=== PATIENT | male | born 1955 | race Caucasian/White ===

== ENCOUNTER 2016-08-20 13:52 | Emergency (ER) | payer MEDICAID ==
[~2016-08-20] VITALS: Ht 172.7 cm; Wt 81.4 kg
[~2016-08-20 13:52] MED LIST: ALBUTEROL0.09 MG/A1 IH; ASPIRIN 32325 MG/TAB PO; NO HOME MEDICATIONS; PERCOCET 325 MG1 TAB PO; PLAVIX 300MG T300 MG PO; PLAVIX 75MG TAB75 MG PO; PREDNISONE20 MG PO; ZITHROMAX 250M250 MG PO
[2016-08-20 13:54] VITALS: TEMP 98.4
[2016-08-20 14:15] VITALS: BP 131/75; PULSE 100
[2016-08-20 14:43] LABS: BASO # 0.1 (0.0-0.2); BASO % 0.8 % (0.0-2.0); EOS # 0.1 (0.0-0.7); GRAN % 59.1 % (42.2-75.2); LYMPH # 2.5 (1.2-3.4); LYMPH % 29.2 % (20.0-51.0); MEAN CELL VOLUME 90 fl (80.0-100.0); MEAN CORPUSCULAR HGB CONC 36 g/dl (33.0-37.0); MEAN PLATELET VOLUME 9.5 fl (7.4-10.4); MONO # 0.8 (0.1-0.6); MONO % 9.4 % (1.7-9.3); PLATELET COUNT 203 K/mm3 (130-400); RED BLOOD COUNT 6.22 M/mm3 (4.20-5.60); REDCELL DISTRIBUTION WIDTH-CV 13.7 % (11.5-14.5); WHITE BLOOD COUNT 8.4 K/mm3 (4.8-10.8)
[2016-08-20 14:46] LABS: HEMATOCRIT 56.1 % (42.0-52.0); HEMOGLOBIN 19.9 g/dl (13.5-18.0); MEAN CORPUSCULAR HEMOGLOBIN 32 pg (27.0-31.0)
[2016-08-20 15:13] LABS: INR 1.1 (0.8-3.0); PROTHROMBIN TIME 11.7 SECONDS (9.7-12.8)
[2016-08-20 15:15] LABS: PARTIAL THROMBOPLASTIN TIME 40.4 SECONDS (26.0-37.0)
== END 2016-08-20 14:15 | disposition short-term general hospital (02) ==
LOC: COL.ER 13:52
PROVIDERS: Family Medicine
DX: I21.29 ST elevation (STEMI) myocardial infarction involving other sites (principal); I73.9 Peripheral vascular disease, unspecified; Z95.820 Peripheral vascular angioplasty status with implants and grafts
CPT/HCPCS: J1644; J3101; J7030

== ENCOUNTER 2016-09-06 00:54 | Emergency (ER) | payer MEDICAID ==
[~2016-09-06] VITALS: Ht 172.7 cm; Wt 80.5 kg
[2016-09-06 00:58] VITALS: TEMP 98
[2016-09-06 01:30] LABS: BASO # 0.1 (0.0-0.2); BASO % 0.6 % (0.0-2.0); EOS # 0.1 (0.0-0.7); GRAN # 8.3 (1.4-6.5); GRAN % 65.4 % (42.2-75.2); LYMPH % 23.5 % (20.0-51.0); MEAN CELL VOLUME 92 fl (80.0-100.0); MEAN CORPUSCULAR HGB CONC 35 g/dl (33.0-37.0); MEAN PLATELET VOLUME 8.7 fl (7.4-10.4); MONO # 1.2 (0.1-0.6); MONO % 9.1 % (1.7-9.3); PLATELET COUNT 283 K/mm3 (130-400); RED BLOOD COUNT 5.74 M/mm3 (4.20-5.60); REDCELL DISTRIBUTION WIDTH-CV 13.2 % (11.5-14.5); WHITE BLOOD COUNT 12.7 K/mm3 (4.8-10.8)
[2016-09-06 01:32] LABS: HEMATOCRIT 52.6 % (42.0-52.0); HEMOGLOBIN 18.2 g/dl (13.5-18.0); MEAN CORPUSCULAR HEMOGLOBIN 32 pg (27.0-31.0)
[2016-09-06 01:40] LABS: ADJUSTED CALCIUM 9.6 mg/dL (8.4-10.2); ALBUMIN 3.8 gm/dL (3.5-5.0); BILIRUBIN,TOTAL 0.7 mg/dL (0.0-1.0); CALCIUM 9.4 mg/dL (8.4-10.2); CREATININE, serum 0.56 mg/dL (0.66-1.25); TOTAL PROTEIN 7.7 gm/dL (6.4-8.2)
[2016-09-06 01:53] LABS: TROPONIN-I 0.168 ng/mL (0.000-0.034)
[2016-09-06] MEDS ORDERED: PLAVIX 75MG TAB75 MG PO (03:43)
[2016-09-06] MEDS ORDERED: COREG12.5 MG PO (03:43)
[2016-09-06] MEDS ORDERED: LIPITOR 40MG TA40 MG PO (03:44)
[2016-09-06] MEDS ORDERED: NITROSTAT0.4 MG/TAB SL (03:44)
[2016-09-06] MEDS ORDERED: NOVOLOG MIX 70/33 ML SQ (03:44)
[2016-09-06 04:10] VITALS: BP 138/77; PULSE 94
== END 2016-09-06 04:10 | disposition short-term general hospital (02) ==
LOC: COL.ER 00:54
PROVIDERS: Emergency Medicine
DX: R07.9 Chest pain, unspecified (principal); R79.89 Other specified abnormal findings of blood chemistry; I10 Essential (primary) hypertension; E11.9 Type 2 diabetes mellitus without complications; I25.2 Old myocardial infarction; F17.210 Nicotine dependence, cigarettes, uncomplicated; I73.9 Peripheral vascular disease, unspecified; Z95.5 Presence of coronary angioplasty implant and graft
CPT/HCPCS: J1650

== ENCOUNTER → 2016-09-10 | Outpatient (CLI) | payer OTHER ==
[~2016-09-10] MED LIST changes: +ASPIRIN E.C. 8181 MG PO; +COREG12.5 MG PO; +HUMALOG MIX 75/10 ML SQ; +LIPITOR 40MG TA40 MG PO; +NITROSTAT0.4 MG/TAB SL; +NOVOLOG MIX 70/33 ML SQ
== END ==
LOC: COL.RAD 09:27
DX: M46.86 Other specified inflammatory spondylopathies, lumbar region (principal); I70.0 Atherosclerosis of aorta

== ENCOUNTER → 2016-11-07 | Outpatient (REF) | LOC: ZLAB.WCH 18:36 | DX: Z01.89 Encounter for other specified special examinations (principal) ==

== ENCOUNTER 2016-11-14 07:18 | Day surgery (SDC) | payer MEDICAID ==
[~2016-11-14] VITALS: Ht 172.7 cm; Wt 88.2 kg
[~2016-11-14 07:18] MED LIST changes: -ASPIRIN E.C. 8181 MG PO; -HUMALOG MIX 75/10 ML SQ
[2016-11-14 08:33] VITALS: BP 94/67; PULSE 83; TEMP 98.6
[2016-11-14] MEDS ORDERED: HUMALOG MIX 75/10 ML SQ (08:44)
[2016-11-14] MEDS ORDERED: ASPIRIN E.C. 8181 MG PO (08:45)
[2016-11-14 10:15] VITALS: BP 70/50; PULSE 87; TEMP 98.4
[2016-11-14 10:18] VITALS: BP 79/55; PULSE 86
[2016-11-14 10:20] VITALS: BP 88/51; PULSE 83
[2016-11-14 10:35] VITALS: BP 94/60; PULSE 85
[2016-11-14 10:55] VITALS: BP 105/64; PULSE 82
== END 2016-11-14 11:40 | disposition home or self-care (01) ==
LOC: SDCO 07:18
DX: H54.7 Unspecified visual loss (principal); I25.119 Atherosclerotic heart disease of native coronary artery with unspecified angina pectoris; K21.9 Gastro-esophageal reflux disease without esophagitis; E11.9 Type 2 diabetes mellitus without complications; I25.2 Old myocardial infarction; I73.9 Peripheral vascular disease, unspecified; J44.9 Chronic obstructive pulmonary disease, unspecified; M19.90 Unspecified osteoarthritis, unspecified site; Z95.5 Presence of coronary angioplasty implant and graft; Z79.01 Long term (current) use of anticoagulants
CPT/HCPCS: J0690; J1885; J2250; J2405; J2704; J3010; J7030

== ENCOUNTER 2017-02-16 20:55 | Emergency (ER) | payer MEDICAID ==
[~2017-02-16] VITALS: Ht 172.7 cm; Wt 89.5 kg
[~2017-02-16 20:55] MED LIST changes: +ASPIRIN E.C. 8181 MG PO; +HUMALOG MIX 75/10 ML SQ
[2017-02-16 20:58] VITALS: TEMP 98.1
[2017-02-16 21:34] LABS: BASO # 0.1 (0.0-0.2); BASO % 0.9 % (0.0-2.0); EOS # 0.2 (0.0-0.7); GRAN # 6.2 (1.4-6.5); GRAN % 56.2 % (42.2-75.2); HEMATOCRIT 46.2 % (42.0-52.0); HEMOGLOBIN 15.7 g/dl (13.5-18.0); LYMPH # 3.3 (1.2-3.4); LYMPH % 30.5 % (20.0-51.0); MEAN CELL VOLUME 95 fl (80.0-100.0); MEAN CORPUSCULAR HEMOGLOBIN 32 pg (27.0-31.0); MEAN CORPUSCULAR HGB CONC 34 g/dl (33.0-37.0); MONO # 1.1 (0.1-0.6); MONO % 10.1 % (1.7-9.3); PLATELET COUNT 235 K/mm3 (130-400); RED BLOOD COUNT 4.87 M/mm3 (4.20-5.60); REDCELL DISTRIBUTION WIDTH-CV 12.6 % (11.5-14.5)
[2017-02-16 21:57] LABS: ALANINE AMINOTRANSFERASE 42 U/L (21-72); ALBUMIN 3.5 gm/dL (3.5-5.0); ALKALINE PHOSPHATASE 96 U/L (50-136); ANION GAP 10 mmol/L (7-16); BILIRUBIN,TOTAL 0.5 mg/dL (0.0-1.0); BLOOD UREA NITROGEN 21 mg/dL (9-20); CALCIUM 8.6 mg/dL (8.4-10.2); CARBON DIOXIDE 25 mmol/L (22-30); CHLORIDE 101 mmol/L (98-107); CREATINE KINASE 57 U/L (55-170); CREATININE, serum 0.69 mg/dL (0.66-1.25); GLUCOSE 149 mg/dL (74-106); LIPASE 341 U/L (23-300); SODIUM 137 mmol/L (137-145); TOTAL PROTEIN 7.2 gm/dL (6.4-8.2)
[2017-02-16 21:58] LABS: INR 1.1 (0.8-3.0); PROTHROMBIN TIME 12.5 SECONDS (9.7-12.8)
[2017-02-16 22:00] LABS: PARTIAL THROMBOPLASTIN TIME 34.4 SECONDS (26.0-37.0)
[2017-02-16 22:07] LABS: B-TYPE NATRIURETIC PEPTIDE 335 pg/mL (0-125); TROPONIN-I < 0.012 ng/mL (0.000-0.034)
[2017-02-16 22:49] VITALS: BP 116/70; PULSE 84
== END 2017-02-16 22:52 | disposition left against medical advice (07) ==
LOC: COL.ER 20:55
PROVIDERS: Emergency Medicine
DX: R07.9 Chest pain, unspecified (principal); E11.51 Type 2 diabetes mellitus with diabetic peripheral angiopathy without gangrene; I25.2 Old myocardial infarction; F17.210 Nicotine dependence, cigarettes, uncomplicated; I25.10 Atherosclerotic heart disease of native coronary artery without angina pectoris; Z95.5 Presence of coronary angioplasty implant and graft; Z79.4 Long term (current) use of insulin; Z79.82 Long term (current) use of aspirin
CPT/HCPCS: J7030

== ENCOUNTER 2017-02-18 19:30 | Emergency (ER) | payer MEDICAID ==
[~2017-02-18] VITALS: Ht 175.3 cm; Wt 89.5 kg
[2017-02-18 19:31] VITALS: TEMP 98.1
[2017-02-18] MEDS ORDERED: LIPITOR 40MG TA40 MG PO (19:58)
[2017-02-18] MEDS ORDERED: PRINIVIL2.5 MG PO (19:59)
[2017-02-18 20:07] LABS: BASO # 0.1 (0.0-0.2); BASO % 0.9 % (0.0-2.0); EOS # 0.2 (0.0-0.7); EOS % 2.1 % (0-4.0); GRAN # 6.8 (1.4-6.5); GRAN % 60.6 % (42.2-75.2); HEMATOCRIT 48.7 % (42.0-52.0); HEMOGLOBIN 16.8 g/dl (13.5-18.0); LYMPH % 26.7 % (20.0-51.0); MEAN CELL VOLUME 94 fl (80.0-100.0); MEAN CORPUSCULAR HEMOGLOBIN 32 pg (27.0-31.0); MEAN CORPUSCULAR HGB CONC 35 g/dl (33.0-37.0); MONO % 9.3 % (1.7-9.3); PLATELET COUNT 244 K/mm3 (130-400); RED BLOOD COUNT 5.18 M/mm3 (4.20-5.60); REDCELL DISTRIBUTION WIDTH-CV 12.5 % (11.5-14.5); WHITE BLOOD COUNT 11.2 K/mm3 (4.8-10.8)
[2017-02-18 20:21] LABS: ADJUSTED CALCIUM 9.4 mg/dL (8.4-10.2); ALANINE AMINOTRANSFERASE 42 U/L (21-72); ALBUMIN 3.7 gm/dL (3.5-5.0); ALKALINE PHOSPHATASE 108 U/L (50-136); ANION GAP 10 mmol/L (7-16); BILIRUBIN,TOTAL 0.5 mg/dL (0.0-1.0); BLOOD UREA NITROGEN 11 mg/dL (9-20); C-REACTIVE PROTEIN 2.6 mg/dL (0.0-0.9); CALCIUM 9.2 mg/dL (8.4-10.2); CARBON DIOXIDE 23 mmol/L (22-30); CHLORIDE 100 mmol/L (98-107); GLUCOSE 125 mg/dL (74-106); LIPASE 445 U/L (23-300); POTASSIUM 4.2 mmol/L (3.4-5.0); SODIUM 133 mmol/L (137-145); TOTAL PROTEIN 7.8 gm/dL (6.4-8.2)
[2017-02-18 20:30] LABS: TROPONIN-I < 0.012 ng/mL (0.000-0.034)
[2017-02-18 21:01] LABS: PH 5 (5-8); SQUAMOUS EPITHELIAL None Seen /hpf; URINE APPEARANCE Clear; URINE BACTERIA None Seen /hpf; URINE BILIRUBIN Negative (NEGATIVE); URINE BLOOD 1+ (NEGATIVE); URINE COLOR Yellow; URINE GLUCOSE Negative (NEGATIVE); URINE KETONE Negative (NEGATIVE); URINE RBC None Seen /hpf; URINE UROBILINOGEN Negative (NEGATIVE); URINE WBC 0-2 /hpf
[2017-02-18] MEDS ORDERED: NORCO 325 MG-51 TAB PO (21:35)
[2017-02-18 21:54] VITALS: BP 142/88; PULSE 88
== END 2017-02-18 21:53 | disposition home or self-care (01) ==
LOC: COL.ER 19:30
PROVIDERS: Family Medicine
DX: I10 Essential (primary) hypertension (principal); I25.10 Atherosclerotic heart disease of native coronary artery without angina pectoris; I25.2 Old myocardial infarction; F17.210 Nicotine dependence, cigarettes, uncomplicated; K85.90 Acute pancreatitis without necrosis or infection, unspecified; Z79.82 Long term (current) use of aspirin; Z79.02 Long term (current) use of antithrombotics/antiplatelets; Z79.4 Long term (current) use of insulin; Z95.5 Presence of coronary angioplasty implant and graft
CPT/HCPCS: J2550; J7030; Q9967

== ENCOUNTER 2017-02-23 11:05 | Emergency (ER) | payer MEDICAID ==
[~2017-02-23] VITALS: Ht 172.7 cm; Wt 89.5 kg
[~2017-02-23 11:05] MED LIST changes: +NORCO 325 MG-51 TAB PO; +PRINIVIL2.5 MG PO
[2017-02-23 11:12] VITALS: TEMP 98
[2017-02-23] MEDS ORDERED: GENTLE LAXATIVE10 MG RC (11:52)
[2017-02-23] MEDS ORDERED: NICODERM C21 MG/PATC TD (12:36)
[2017-02-23 12:58] LABS: BASO # 0.1 (0.0-0.2); BASO % 0.9 % (0.0-2.0); EOS # 0.2 (0.0-0.7); EOS % 2.6 % (0-4.0); GRAN # 4.9 (1.4-6.5); GRAN % 54.9 % (42.2-75.2); HEMATOCRIT 46.8 % (42.0-52.0); HEMOGLOBIN 16.1 g/dl (13.5-18.0); LYMPH # 2.8 (1.2-3.4); LYMPH % 31.2 % (20.0-51.0); MEAN CELL VOLUME 93 fl (80.0-100.0); MEAN CORPUSCULAR HEMOGLOBIN 32 pg (27.0-31.0); MEAN CORPUSCULAR HGB CONC 34 g/dl (33.0-37.0); MEAN PLATELET VOLUME 8.6 fl (7.4-10.4); MONO # 0.9 (0.1-0.6); MONO % 10.1 % (1.7-9.3); PLATELET COUNT 258 K/mm3 (130-400); RED BLOOD COUNT 5.01 M/mm3 (4.20-5.60); REDCELL DISTRIBUTION WIDTH-CV 12.6 % (11.5-14.5); WHITE BLOOD COUNT 8.9 K/mm3 (4.8-10.8)
[2017-02-23 13:13] LABS: ADJUSTED CALCIUM 9.2 mg/dL (8.4-10.2); ALANINE AMINOTRANSFERASE 41 U/L (21-72); ALBUMIN 3.5 gm/dL (3.5-5.0); ALKALINE PHOSPHATASE 103 U/L (50-136); ANION GAP 7 mmol/L (7-16); BILIRUBIN,TOTAL 0.5 mg/dL (0.0-1.0); BLOOD UREA NITROGEN 15 mg/dL (9-20); C-REACTIVE PROTEIN 2.4 mg/dL (0.0-0.9); CALCIUM 8.8 mg/dL (8.4-10.2); CARBON DIOXIDE 27 mmol/L (22-30); CHLORIDE 101 mmol/L (98-107); CREATININE, serum 0.55 mg/dL (0.66-1.25); GLUCOSE 116 mg/dL (74-106); LIPASE 231 U/L (23-300); SODIUM 134 mmol/L (137-145); TOTAL PROTEIN 7.3 gm/dL (6.4-8.2)
[2017-02-23 13:22] LABS: PH 5 (5-8); SQUAMOUS EPITHELIAL None Seen /hpf; URINE APPEARANCE Clear; URINE BACTERIA None Seen /hpf; URINE BILIRUBIN Negative (NEGATIVE); URINE BLOOD Negative (NEGATIVE); URINE COLOR Yellow; URINE GLUCOSE Negative (NEGATIVE); URINE KETONE Negative (NEGATIVE); URINE RBC 0-2 /hpf; URINE WBC 0-2 /hpf
[2017-02-23 13:22] LABS: TROPONIN-I < 0.012 ng/mL (0.000-0.034)
[2017-02-23 14:02] VITALS: BP 100/77; PULSE 84
== END 2017-02-23 14:29 | disposition home or self-care (01) ==
LOC: COL.ER 11:05
PROVIDERS: Emergency Medicine
DX: I95.9 Hypotension, unspecified (principal); R10.9 Unspecified abdominal pain; E11.9 Type 2 diabetes mellitus without complications; I10 Essential (primary) hypertension; F17.210 Nicotine dependence, cigarettes, uncomplicated; E78.5 Hyperlipidemia, unspecified; Z79.4 Long term (current) use of insulin; Z79.82 Long term (current) use of aspirin; Z86.79 Personal history of other diseases of the circulatory system; Z95.820 Peripheral vascular angioplasty status with implants and grafts
CPT/HCPCS: J2405; J7030; Q9967

== ENCOUNTER 2017-08-25 18:53 | Inpatient (IN) | payer MEDICAID ==
[~2017-08-25] VITALS: Ht 170.2 cm; Wt 90.4 kg
[2017-08-25] VITALS (53 sets, daily range): O2SAT 78–100
[~2017-08-25 18:53] MED LIST changes: +GENTLE LAXATIVE10 MG RC; +NICODERM C21 MG/PATC TD
[2017-08-25 19:20] LABS: BASO # 0.1 (0.0-0.2); BASO % 0.7 % (0.0-2.0); EOS # 0.1 (0.0-0.7); GRAN # 8.8 (1.4-6.5); GRAN % 68.3 % (42.2-75.2); HEMATOCRIT 38.8 % (42.0-52.0); HEMOGLOBIN 12.6 g/dl (13.5-18.0); LYMPH # 2.3 (1.2-3.4); LYMPH % 17.6 % (20.0-51.0); MEAN CELL VOLUME 93 fl (80.0-100.0); MEAN CORPUSCULAR HEMOGLOBIN 30 pg (27.0-31.0); MEAN CORPUSCULAR HGB CONC 33 g/dl (33.0-37.0); MEAN PLATELET VOLUME 9.1 fl (7.4-10.4); MONO # 1.5 (0.1-0.6); MONO % 11.8 % (1.7-9.3); PLATELET COUNT 316 K/mm3 (130-400); RED BLOOD COUNT 4.19 M/mm3 (4.20-5.60); REDCELL DISTRIBUTION WIDTH-CV 13.4 % (11.5-14.5)
[2017-08-25 19:40] LABS: BILIRUBIN,TOTAL 0.3 mg/dL (0.0-1.0); CALCIUM 8.2 mg/dL (8.4-10.2); CREATININE, serum 0.57 mg/dL (0.66-1.25); POTASSIUM 3.8 mmol/L (3.4-5.0); TOTAL PROTEIN 7.1 gm/dL (6.4-8.2)
[2017-08-25 19:54] LABS: TROPONIN-I 0.038 ng/mL (0.000-0.034)
[2017-08-26 00:49] VITALS: BP 115/89; PULSE 87; TEMP 97.8
== END 2017-08-25 23:19 | disposition left against medical advice (07) | DRG 193 ==
LOC: COL.ER 18:53 → ICU 19:45
PROVIDERS: Emergency Medicine
DX: J18.9 Pneumonia, unspecified organism (principal); J96.01 Acute respiratory failure with hypoxia; J44.1 Chronic obstructive pulmonary disease with (acute) exacerbation; J44.0 Chronic obstructive pulmonary disease with (acute) lower respiratory infection; R04.2 Hemoptysis; E87.1 Hypo-osmolality and hyponatremia; F17.210 Nicotine dependence, cigarettes, uncomplicated; I25.10 Atherosclerotic heart disease of native coronary artery without angina pectoris; Z95.5 Presence of coronary angioplasty implant and graft; E11.21 Type 2 diabetes mellitus with diabetic nephropathy; Z79.4 Long term (current) use of insulin
CPT/HCPCS: 99223-AI; J0456; J0696; J2930; J7030; J7050

== ENCOUNTER 2017-08-26 13:34 | Inpatient (IN) | payer MEDICAID ==
[~2017-08-26] VITALS: Ht 182.9 cm; Wt 103.1 kg
[2017-08-26] VITALS (492 sets, daily range): BP systolic 110–137; BP diastolic 64–80; PULSE 81–92; TEMP 98.3–99.1; O2SAT 87–100
[2017-08-26 13:58] LABS: BASO % 0.2 % (0.0-2.0); EOS % 0.2 % (0-4.0); GRAN # 10.4 (1.4-6.5); GRAN % 82.9 % (42.2-75.2); HEMATOCRIT 40.8 % (42.0-52.0); HEMOGLOBIN 13.3 g/dl (13.5-18.0); LYMPH # 1.3 (1.2-3.4); LYMPH % 10.3 % (20.0-51.0); MEAN CELL VOLUME 92 fl (80.0-100.0); MEAN CORPUSCULAR HEMOGLOBIN 30 pg (27.0-31.0); MEAN CORPUSCULAR HGB CONC 33 g/dl (33.0-37.0); MONO # 0.7 (0.1-0.6); MONO % 5.6 % (1.7-9.3); PLATELET COUNT 346 K/mm3 (130-400); RED BLOOD COUNT 4.42 M/mm3 (4.20-5.60); REDCELL DISTRIBUTION WIDTH-CV 13.6 % (11.5-14.5)
[2017-08-26 14:00] LABS: INR 1.3 (0.8-3.0); PROTHROMBIN TIME 14.8 SECONDS (9.7-12.8)
[2017-08-26 14:14] LABS: ARTERIAL BLD GAS O2 SATURATION 93.6 % (92-100); ARTERIAL BLD GAS TCO2 CT 33.7; ARTERIAL BLOOD GAS PCO2 57.5 mmHg (35-45); ARTERIAL BLOOD GAS PO2 65.1 mmHg (80-100); ARTERIAL BLOOD GAS pH 7.36 (7.35-7.45)
[2017-08-26 14:21] LABS: COLLECTION METHOD CLEAN CATCH
[2017-08-26 14:26] LABS: PH 6 (5-8); SQUAMOUS EPITHELIAL None Seen /hpf; URINE APPEARANCE Clear; URINE BACTERIA None Seen /hpf; URINE BILIRUBIN Negative (NEGATIVE); URINE BLOOD 1+ (NEGATIVE); URINE COLOR Straw; URINE GLUCOSE 1+ (NEGATIVE); URINE KETONE Negative (NEGATIVE); URINE LEUKOCYTE ESTERASE Negative (NEGATIVE); URINE NITRATE Negative (NEGATIVE); URINE PROTEIN(semi-quant) 2+ (NEGATIVE); URINE RBC 0-2 /hpf
[2017-08-26 14:28] LABS: TROPONIN-I 0.056 ng/mL (0.000-0.034)
[2017-08-26 14:29] LABS: ALBUMIN 3.4 gm/dL (3.5-5.0); BILIRUBIN,TOTAL 0.3 mg/dL (0.0-1.0); CALCIUM 8.9 mg/dL (8.4-10.2); CREATININE, serum 0.48 mg/dL (0.66-1.25); POTASSIUM 4.3 mmol/L (3.4-5.0)
[2017-08-26 16:56] LABS: ARTERIAL BLD GAS O2 SATURATION 98.9 % (92-100); ARTERIAL BLD GAS TCO2 CT 32.6; ARTERIAL BLOOD GAS BASE EXCESS 1.4 (-2-2); ARTERIAL BLOOD GAS HCO3 30.4 meq/L (22-26); ARTERIAL BLOOD GAS pH 7.25 (7.35-7.45)
[2017-08-26 16:57] LABS: ARTERIAL BLOOD GAS PCO2 71.3 mmHg (35-45); ARTERIAL BLOOD GAS PO2 158.4 mmHg (80-100)
[2017-08-26 21:51] LABS: ARTERIAL BLD GAS TCO2 CT 31.3; ARTERIAL BLOOD GAS BASE EXCESS 4.9 (-2-2); ARTERIAL BLOOD GAS HCO3 29.9 meq/L (22-26); ARTERIAL BLOOD GAS PCO2 45.8 mmHg (35-45); ARTERIAL BLOOD GAS PO2 88.4 mmHg (80-100); ARTERIAL BLOOD GAS pH 7.43 (7.35-7.45)
[2017-08-27] VITALS (672 sets, daily range): BP systolic 82–121; BP diastolic 47–70; PULSE 78–82; TEMP 97–100.1; O2SAT 89–100
[2017-08-27 05:38] LABS: BASO % 0.3 % (0.0-2.0); EOS % 0.3 % (0-4.0); GRAN # 10.6 (1.4-6.5); GRAN % 76.4 % (42.2-75.2); LYMPH # 1.9 (1.2-3.4); LYMPH % 13.9 % (20.0-51.0); MEAN CELL VOLUME 94 fl (80.0-100.0); MEAN CORPUSCULAR HGB CONC 31 g/dl (33.0-37.0); MONO # 1.2 (0.1-0.6); MONO % 8.5 % (1.7-9.3); PLATELET COUNT 326 K/mm3 (130-400); RED BLOOD COUNT 3.82 M/mm3 (4.20-5.60)
[2017-08-27 05:44] LABS: MEAN CORPUSCULAR HEMOGLOBIN 30 pg (27.0-31.0)
[2017-08-27 05:45] LABS: HEMOGLOBIN 11.3 g/dl (13.5-18.0)
[2017-08-27 05:48] LABS: ARTERIAL BLD GAS TCO2 CT 32.5; ARTERIAL BLOOD GAS BASE EXCESS 6.7 (-2-2); ARTERIAL BLOOD GAS HCO3 31.2 meq/L (22-26); ARTERIAL BLOOD GAS PCO2 43.7 mmHg (35-45); ARTERIAL BLOOD GAS PO2 54.9 mmHg (80-100); ARTERIAL BLOOD GAS pH 7.47 (7.35-7.45)
[2017-08-27 05:52] LABS: MAGNESIUM 1.8 mg/dL (1.6-2.3); PHOSPHOROUS 2.3 mg/dL (2.5-4.5)
[2017-08-27 08:54] LABS: CALCIUM 8.1 mg/dL (8.4-10.2); CREATININE, serum 0.47 mg/dL (0.66-1.25); POTASSIUM 3.6 mmol/L (3.4-5.0)
[2017-08-27 09:40] LABS: ARTERIAL BLD GAS TCO2 CT 25.1; ARTERIAL BLOOD GAS PCO2 36.8 mmHg (35-45); ARTERIAL BLOOD GAS pH 7.43 (7.35-7.45)
[2017-08-27 09:43] LABS: ARTERIAL BLOOD GAS PO2 131.3 mmHg (80-100)
[2017-08-27 13:33] LABS: MAGNESIUM 1.7 mg/dL (1.6-2.3)
[2017-08-27 13:40] LABS: PRE ALBUMIN 10.5 mg/dL (17.6-36.0)
[2017-08-28 00:01] VITALS: BP 94/56; PULSE 88; TEMP 100.6
[2017-08-28 04:01] VITALS: BP 92/52; PULSE 89; TEMP 101.4
[2017-08-28 04:40] LABS: ARTERIAL BLD GAS TCO2 CT 33.7; ARTERIAL BLOOD GAS BASE EXCESS 7.1 (-2-2); ARTERIAL BLOOD GAS HCO3 32.2 meq/L (22-26); ARTERIAL BLOOD GAS PO2 61.7 mmHg (80-100); ARTERIAL BLOOD GAS pH 7.45 (7.35-7.45)
[2017-08-28 05:51] LABS: BASO # 0.1 (0.0-0.2); BASO % 0.5 % (0.0-2.0); EOS # 0.1 (0.0-0.7); EOS % 0.8 % (0-4.0); GRAN # 9.1 (1.4-6.5); GRAN % 72.6 % (42.2-75.2); LYMPH # 1.9 (1.2-3.4); LYMPH % 15.1 % (20.0-51.0); MEAN CELL VOLUME 95 fl (80.0-100.0); MEAN CORPUSCULAR HGB CONC 33 g/dl (33.0-37.0); MEAN PLATELET VOLUME 9.8 fl (7.4-10.4); MONO # 1.3 (0.1-0.6); MONO % 10.5 % (1.7-9.3); PLATELET COUNT 315 K/mm3 (130-400); RED BLOOD COUNT 3.62 M/mm3 (4.20-5.60); REDCELL DISTRIBUTION WIDTH-CV 14.4 % (11.5-14.5)
[2017-08-28 05:53] LABS: HEMATOCRIT 34.5 % (42.0-52.0); HEMOGLOBIN 11.3 g/dl (13.5-18.0); MEAN CORPUSCULAR HEMOGLOBIN 31 pg (27.0-31.0)
[2017-08-28 06:20] LABS: CALCIUM 7.4 mg/dL (8.4-10.2); CREATININE, serum 0.52 mg/dL (0.66-1.25); MAGNESIUM 1.6 mg/dL (1.6-2.3); PHOSPHOROUS 3.9 mg/dL (2.5-4.5); POTASSIUM 3.7 mmol/L (3.4-5.0)
[2017-08-28 08:00] VITALS: BP 100/48; PULSE 80; TEMP 99.1
[2017-08-28 10:04] LABS: INR 1.4 (0.8-3.0); PROTHROMBIN TIME 16.6 SECONDS (9.7-12.8)
[2017-08-28 12:01] VITALS: BP 122/50; PULSE 81; TEMP 98.6
[2017-08-28 12:49] LABS: COLLECTION METHOD CLEAN CATCH
[2017-08-28 12:58] LABS: MUCOUS Present /lpf; PH 5 (5-8); SQUAMOUS EPITHELIAL None Seen /hpf; URINE APPEARANCE Clear; URINE BACTERIA None Seen /hpf; URINE BILIRUBIN Negative (NEGATIVE); URINE BLOOD 1+ (NEGATIVE); URINE COLOR Straw; URINE GLUCOSE Negative (NEGATIVE); URINE KETONE Negative (NEGATIVE); URINE LEUKOCYTE ESTERASE Negative (NEGATIVE); URINE NITRATE Negative (NEGATIVE); URINE PROTEIN(semi-quant) Negative (NEGATIVE); URINE RBC 0-2 /hpf
[2017-08-28 16:00] VITALS: BP 119/49; PULSE 77; TEMP 98.2
== END 2017-08-28 16:53 | disposition short-term general hospital (02) | DRG 208 ==
LOC: COL.ER 13:34 → ICU 15:08 → COL.ER 15:08 → ICU 15:08
PROVIDERS: Family Medicine; Internal Medicine Pulmonary Disease
PROC: 02HV33Z Insertion of Infusion Device into Superior Vena Cava, Percutaneous Approach (ICD-10-PCS; principal; 2017-08-26)
PROC: 5A1945Z Respiratory Ventilation, 24-96 Consecutive Hours (ICD-10-PCS; 2017-08-26)
PROC: 0BH18EZ Insertion of Endotracheal Airway into Trachea, Via Natural or Artificial Opening Endoscopic (ICD-10-PCS; 2017-08-26)
DX: J96.01 Acute respiratory failure with hypoxia (principal); J15.9 Unspecified bacterial pneumonia; I21.A1 Myocardial infarction type 2; J44.0 Chronic obstructive pulmonary disease with (acute) lower respiratory infection; E46 Unspecified protein-calorie malnutrition; E87.1 Hypo-osmolality and hyponatremia; I50.30 Unspecified diastolic (congestive) heart failure; I11.0 Hypertensive heart disease with heart failure; E66.01 Morbid (severe) obesity due to excess calories; E11.9 Type 2 diabetes mellitus without complications; Z79.4 Long term (current) use of insulin; Z91.14 Patient's other noncompliance with medication regimen; F17.210 Nicotine dependence, cigarettes, uncomplicated; Z95.5 Presence of coronary angioplasty implant and graft; I25.2 Old myocardial infarction; E83.42 Hypomagnesemia; R91.8 Other nonspecific abnormal finding of lung field; Z68.28 Body mass index [BMI] 28.0-28.9, adult
CPT/HCPCS: 99223-AI; 99233-AI; 99239; C1751; C9113; J0330; J1644; J1650; J1720; J1815; J1956; J2185; J2250; J2704; J3010; J3370; J3475; J3480; J7030; J7040; J7050; J7120; Q9967

== ENCOUNTER → 2017-09-19 | Outpatient (CLI) | payer MEDICAID ==
[~2017-09-19] VITALS: Ht 172.7 cm; Wt 87.6 kg
[~2017-09-19] MED LIST changes: +COMBIRESP IH; +PEPCID 20MG TAB20 MG PO
[2017-09-19 11:20] VITALS: BP 96/59; PULSE 102
== END ==
LOC: COL.RAD 10:49
DX: C34.01 Malignant neoplasm of right main bronchus (principal); I10 Essential (primary) hypertension

== ENCOUNTER 2018-01-15 12:00 | Outpatient (RCR) | payer MEDICAID ==
[2018-01-05 11:53] VITALS: BP 116/73; PULSE 102; TEMP 98.3
[2018-01-05 12:03] LABS: HEMATOCRIT 40.1 % (42.0-52.0); HEMOGLOBIN 12.9 g/dl (13.5-18.0); MEAN CELL VOLUME 96 fl (80.0-100.0); MEAN CORPUSCULAR HEMOGLOBIN 31 pg (27.0-31.0); MEAN CORPUSCULAR HGB CONC 32 g/dl (33.0-37.0); MEAN PLATELET VOLUME 9.1 fl (7.4-10.4); PLATELET COUNT 325 K/mm3 (130-400); RED BLOOD COUNT 4.19 M/mm3 (4.20-5.60); REDCELL DISTRIBUTION WIDTH-CV 13.7 % (11.5-14.5)
[2018-01-05 12:24] LABS: BAND 6 % (0-10); BASOPHIL 1 % (0-2); EOSINOPHIL 3 % (0-4); LYMPHOCYTE 16 % (20.0-51.0); METAMYELOCYTE 2 % (0-0); NEUTROPHILS 68 % (42.0-75.2)
[2018-01-05 12:25] LABS: HYPOCHROMIA 1+; PLATELET ESTIMATE NORMAL (NORMAL)
[2018-01-06 10:20] VITALS: BP 87/36; PULSE 81; TEMP 98.1
[2018-01-09 10:06] VITALS: BP 92/48; PULSE 79; TEMP 98.7
[2018-01-12 09:50] LABS: HEMATOCRIT 40.4 % (42.0-52.0); HEMOGLOBIN 13.1 g/dl (13.5-18.0); MEAN CELL VOLUME 95 fl (80.0-100.0); MEAN CORPUSCULAR HEMOGLOBIN 31 pg (27.0-31.0); MEAN CORPUSCULAR HGB CONC 32 g/dl (33.0-37.0); MEAN PLATELET VOLUME 9.2 fl (7.4-10.4); PLATELET COUNT 290 K/mm3 (130-400); RED BLOOD COUNT 4.26 M/mm3 (4.20-5.60); REDCELL DISTRIBUTION WIDTH-CV 13.6 % (11.5-14.5)
[2018-01-12 09:53] VITALS: BP 95/65; BP 98/43; PULSE 102; PULSE 98; TEMP 97.4
[2018-01-12 11:10] LABS: BAND 5 % (0-10); BASOPHIL 2 % (0-2); EOSINOPHIL 2 % (0-4); LYMPHOCYTE 10 % (20.0-51.0); NEUTROPHILS 77 % (42.0-75.2); PLATELET ESTIMATE NORMAL (NORMAL)
[~2018-01-15] VITALS: Ht 172.7 cm; Wt 93.7 kg
[~2018-01-15 12:00] MED LIST changes: +00186-0370-20 IH; +NEURONTIN300 MG/CAP PO
[2018-01-15 13:09] VITALS: BP 95/65; PULSE 98; TEMP 97.4
== END 2018-01-15 13:10 | disposition home or self-care (01) ==
LOC: EUO 12:00
PROVIDERS: Internal Medicine Medical Oncology
DX: C34.01 Malignant neoplasm of right main bronchus (principal); F17.210 Nicotine dependence, cigarettes, uncomplicated; Z80.3 Family history of malignant neoplasm of breast; Z95.9 Presence of cardiac and vascular implant and graft, unspecified; Z45.2 Encounter for adjustment and management of vascular access device; Z79.82 Long term (current) use of aspirin; Z79.899 Other long term (current) drug therapy; Z92.3 Personal history of irradiation
CPT/HCPCS: C1751

== ENCOUNTER 2018-02-12 10:20 | Emergency (ER) | payer MEDICAID ==
[~2018-02-12] VITALS: Ht 177.8 cm; Wt 90.9 kg
[2018-02-12 10:22] VITALS: TEMP 97
[2018-02-12 11:03] LABS: HEMOGLOBIN 11.9 g/dl (13.5-18.0); MEAN CELL VOLUME 93 fl (80.0-100.0); MEAN CORPUSCULAR HEMOGLOBIN 30 pg (27.0-31.0); MEAN CORPUSCULAR HGB CONC 32 g/dl (33.0-37.0); MEAN PLATELET VOLUME 9.2 fl (7.4-10.4); PLATELET COUNT 390 K/mm3 (130-400); REDCELL DISTRIBUTION WIDTH-CV 14.5 % (11.5-14.5)
[2018-02-12 11:23] LABS: ALBUMIN 3.3 gm/dL (3.5-5.0); BILIRUBIN,TOTAL 0.8 mg/dL (0.0-1.0); CALCIUM 8.3 mg/dL (8.4-10.2); CREATININE, serum 0.47 mg/dL (0.66-1.25); POTASSIUM 4.4 mmol/L (3.4-5.0); TOTAL PROTEIN 7.3 gm/dL (6.4-8.2)
[2018-02-12 11:24] LABS: ANISOCYTOSIS 1+; BAND 7 % (0-10); LYMPHOCYTE 8 % (20.0-51.0); NEUTROPHILS 78 % (42.0-75.2); PLATELET ESTIMATE NORMAL (NORMAL)
[2018-02-12 11:37] LABS: TROPONIN-I 0.073 ng/mL (0.000-0.034)
[2018-02-12] MEDS ORDERED: LEVAQUIN 5500 MG/TA1 PO (12:10)
[2018-02-12] MEDS ORDERED: PREDNISONE20 MG PO ×3 (12:10→15:36)
[2018-02-12] MEDS ORDERED: OMNICEF 300MG300 MG PO ×2 (12:10→15:16)
[2018-02-12 12:23] VITALS: PULSE 102
[2018-02-12] MEDS ORDERED: HUMALOG MIX 75/10 ML SQ (14:59)
[2018-02-12] MEDS ORDERED: PROAIR HFA0.09 MG/AC IH (15:36)
[2018-02-12] MEDS ORDERED: LEVAQUIN 750MG750 M1 PO (15:36)
== END 2018-02-12 12:25 | disposition left against medical advice (07) ==
LOC: COL.ER 10:20
PROVIDERS: Emergency Medicine
DX: J44.1 Chronic obstructive pulmonary disease with (acute) exacerbation (principal); J18.9 Pneumonia, unspecified organism; I25.10 Atherosclerotic heart disease of native coronary artery without angina pectoris; I10 Essential (primary) hypertension; E11.9 Type 2 diabetes mellitus without complications; F17.210 Nicotine dependence, cigarettes, uncomplicated; Z95.5 Presence of coronary angioplasty implant and graft; Z79.82 Long term (current) use of aspirin; Z79.4 Long term (current) use of insulin
CPT/HCPCS: J0692; J1956; J2930; J3475

== ENCOUNTER 2018-02-12 14:41 | Emergency (ER) | payer MEDICAID ==
[~2018-02-12] VITALS: Ht 175.3 cm; Wt 92.3 kg
[~2018-02-12 14:41] MED LIST changes: +LEVAQUIN 5500 MG/TA1 PO; +OMNICEF 300MG300 MG PO
[2018-02-12 14:48] VITALS: TEMP 98.8
[2018-02-12] MEDS ORDERED: HUMALOG MIX 75/10 ML SQ (14:59)
[2018-02-12] MEDS ORDERED: OMNICEF 300MG300 MG PO (15:16)
[2018-02-12] MEDS ORDERED: PREDNISONE20 MG PO ×2 (15:18→15:36)
[2018-02-12 15:20] VITALS: BP 108/90; PULSE 94
[2018-02-12] MEDS ORDERED: LEVAQUIN 750MG750 M1 PO (15:36)
[2018-02-12] MEDS ORDERED: PROAIR HFA0.09 MG/AC IH (15:36)
== END 2018-02-12 15:49 | disposition left against medical advice (07) ==
LOC: COL.ER 14:41
DX: J18.1 Lobar pneumonia, unspecified organism (principal); I25.10 Atherosclerotic heart disease of native coronary artery without angina pectoris; E11.9 Type 2 diabetes mellitus without complications; J44.9 Chronic obstructive pulmonary disease, unspecified; F17.210 Nicotine dependence, cigarettes, uncomplicated; Z79.82 Long term (current) use of aspirin; Z79.4 Long term (current) use of insulin; Z85.118 Personal history of other malignant neoplasm of bronchus and lung